=== PATIENT | female | born 1965 | race Caucasian/White ===

== ENCOUNTER 2017-07-21 21:57 | Emergency (ER) | payer OTHER, SELFPAY ==
[2017-07-21 22:01] VITALS: BP 118/82; PULSE 82; RESP 12; TEMP 36.8; O2SAT 99; BMI 32.5
--- NOTE | 2017-07-21 22:26 | HMH.EDWNDL ---
ED Disposition Clinical Impression: Laceration Disposition: Home, Self-Care Condition on Discharge: Good Instructions: DI for Laceration Repair Additional Instructions: sutures out 8-10 days and recheck if needed Prescriptions: cephALEXin [Keflex 500mg Cap] 500 mg PO Q8H #30 cap - Critical Care Critical Care Time: No Attestation: On 07/21/17, the high probability of a clinically significant, sudden or life threatening deterioration of the following system(s) required my full and direct attention, intervention and personal management. The time I documented below is in addition to time spent performing reported procedures but includes the following listed in this critical care notation. Medical Decision Making - Medical Records Medical records reviewed: Yes: I reviewed the patient's medical records. Vital Signs: 07/21/17 22:01 Temperature 98.2 F Temperature Source Oral Pulse Rate [Left Radial] 82 Respiratory Rate 12 Blood Pressure [Right Arm] 118/82 Blood Pressure Mean [Right Arm] 94 Blood Pressure Source [Right Arm] Automatic Cuff Blood Pressure Position [Right Arm] Sitting 02 Sat by Pulse Oximetry 99 Oxygen Delivery Method Room Air - Waqas Inquiry Pt receiving controlled substance: No Wound/Laceration HPI - General Chief Complaint: Wound/Laceration Stated Complaint: AO 07/21/16 @ 1030 Lac to left hand Time Seen by Provider: 07/21/17 22:26 Mode of Arrival: Ambulatory Source of Information: Patient, Medical Record Limitations: No Limitations Description of Symptoms (Recalled from ER Triage Doc. by RN): left hand avulsion , right plantar foot avulsion - History of Present Illness HPI narrative: trip injury with lac lt hand and abrasion rt foot Onset (ago): day(s) Extremity Location: Left: hand, Right: foot Place: home Patient tetanus UTD: No Context: accidental - Related Data Home Medications Medication Instructions Recorded Confirmed ALPRAZolam [Alprazolam Xr 1mg Tab] 1 mg PO HS 07/21/17 07/21/17 Hydrocodone/Acetaminophen 1 each PO Q4HP PRN 07/21/17 07/21/17 [Hydrocodon-Acetaminoph 7.5-325] Ibuprofen [Ibuprofen 800mg Tab] 800 mg PO Q8HP PRN 07/21/17 07/21/17 Previous Rx's Medication Instructions Recorded cephALEXin [Keflex 500mg Cap] 500 mg PO Q8H #30 cap 07/21/17 Allergies Allergy/AdvReac Type Severity Reaction Status Date / Time No Known Drug Allergies Allergy Unknown Verified 07/21/17 22:13 [NO KNOWN DRUG ALLERGIES] [facility] History I have reviewed the patient's past medical history: Yes Medical History: Denies:: Cancer, Diabetes Mellitus Type 1, Diabetes Mellitus Type 2, MRSA Laterality Cases: Right: Total Hip Replacement Amputation: No Fractures: Yes (bilateral hips) - *Social History Educational Level: Completed GED/General Educational Development Smoking Status: Current every day smoker # Packs/Day (cigarettes): 1 Alcohol Intake: never - Psychiatric History Expresses thoughts of harming self/others: None Suicide Plan Description: No Plan ROS Obtained: Yes All systems reviewed & no additional complaints - Constitutional Constitutional: Denies fever(s) - Eyes Eyes: Denies change in vision - ENT Ears, Nose, Mouth, and Throat: Denies sore throat - Cardiovascular Cardiovascular: Denies chest pain at rest - Respiratory Respiratory: No chest congestion - Gastrointestinal Gastrointestingal: Denies: abdominal pain - Musculoskeletal Musculoskeletal: Denies joint pain, Denies joint stiffness - Integumentary/Breasts Skin/Breast: Reports as per HPI - Neurologic Neurologic: Denies seizure-like activity Physical Exam - General General appearance: alert, in no apparent distress - Head Head exam: normocephalic - Eye Eye exam: Present: PERRL, EOMI - ENT ENT exam: Present: mucous membranes moist - Neck Neck exam: Present: trachea midline - Respiratory Respiratory exam: Absent: respiratory distress - Cardiova
[2017-07-21 23:12] VITALS: BP 118/72; PULSE 78; RESP 16; TEMP 36.9; O2SAT 98
== END 2017-07-21 23:14 | disposition home or self-care (01) ==
PROVIDERS: Emergency Provider Emergency Medicine
DX: S61.412A Laceration without foreign body of left hand, initial encounter (principal); W01.0XXA Fall on same level from slipping, tripping and stumbling without subsequent striking against object, initial encounter; Y92.019 Unspecified place in single-family (private) house as the place of occurrence of the external cause; S90.811A Abrasion, right foot, initial encounter; F17.210 Nicotine dependence, cigarettes, uncomplicated
CPT/HCPCS: 12001; 99281; 99282

== ENCOUNTER 2020-07-18 14:50 | Emergency (ER) | payer OTHER, SELFPAY ==
[2020-07-18 14:59] VITALS: BP 126/76; PULSE 92; RESP 20; TEMP 36.8; O2SAT 98; BMI 38.9
--- NOTE | 2020-07-18 15:03 | XR_ITS ---
PROCEDURE: XR KNEE RT 3V CLINICAL INDICATION: FALL Pain following injury COMPARISON: No exams were available for comparison FINDINGS: No fracture or dislocation. No lytic or blastic change. There is normal mineralization. There fyhu-hs-pbnmifdw osteoarthritic changes of the medial compartment and patellofemoral joint. Other findings:None. IMPRESSION: Osteoarthritis otherwise negative Dictated by: Mundo Mariee MD 07/18/2020 16:10 Mundo Mariee MD in [place] 07/18/2020 16:10
--- NOTE | 2020-07-18 15:03 | XR_ITS ---
PROCEDURE: XR HIP RT 2-3V W/PELVIS CLINICAL INDICATION: FALL Injury with pain COMPARISON: No exams were available for comparison FINDINGS: Status post bipolar right hip replacement. There is good alignment and no evidence fracture or dislocation. IMPRESSION: No acute findings. Dictated by: Mundo Mariee MD 07/18/2020 16:09 Mundo Mariee MD in [place] 07/18/2020 16:09
--- NOTE | 2020-07-18 15:44 | HMH.EDUTC ---
[facility] [place] Disposition Clinical Impression: Knee sprain Qualifiers: Encounter type: initial encounter Involved ligament of knee: other ligament Laterality: right Qualified Code(s): S83.8X1A - Sprain of other specified parts of right knee, initial encounter Contusion, hip and thigh Qualifiers: Encounter type: initial encounter Laterality: right Qualified Code(s): S70.01XA - Contusion of right hip, initial encounter Disposition: Home, Self-Care Condition on Discharge: Good Instructions: How to Use Crutches, How To Perform RICE (Rest, Ice, Compress, Elevate), How to Use a Knee Immobilizer Additional Instructions: *weight bearing as tolerated *RICE, Rest the extremity, Ice 15-20 minutes 3-4 times daily, Compress- wear the jose luis wrap as discussed as much as possible to help reduce swelling and pain, Elevate the extremity when at rest *Jose Luis wrap/knee immobilizer is for support and help control swelling, use it except in the shower. Be sure that is not to tight but not to loose either *Elevate when resting *Ibuprofen every 6-8 hours as needed for pain an inflammation. If need something more can take Tylenol in between doses of Ibuprofen to help Immediately follow up with your family doctor for new or worsening of symptoms, or no noticeable improvement over the next 3-5 days Follow up with Your Family Doctor or Orthopedics if pain continues Return if needed Straight to ER if any life threatening symptoms Referrals: Silverio Sofia MD [Staff Physician] - (Call office for appointment if pain continues) PCP,No [Primary Care Provider] - As needed Time of Disposition: 16:04 Medical Decision Making - Waqas Inquiry Pt receiving controlled substance: No Waqas was queried for this patient: No Vital Signs: 07/18/20 14:59 Temperature 98.2 F Temperature Source Oral Pulse Rate [Left Radial] 92 H Respiratory Rate 20 Blood Pressure [Right Arm] 126/76 Blood Pressure Mean [Right Arm] 92 Blood Pressure Source [Right Arm] Automatic Cuff Blood Pressure Position [Right Arm] Sitting 02 Sat by Pulse Oximetry 98 Oxygen Delivery Method Room Air Orders (Tests/Meds): ORDERS Category Date Time Status XR knee RT 3V Stat Exams 07/18/20 15:03 Taken - Radiology Data #1 Image(s): Hip Image Reviewed: Yes I reviewed the patient's radiology image w/the ED provider Preliminary Findings: No Fracture Seen #2 Image(s): Knee Image Reviewed: Yes I reviewed the patient's radiology image Preliminary Findings: No Fracture Seen [facility] [place] HPI - General Stated complaint: AO fall 07/17/20 right side pain Time Seen by Provider: 07/18/20 15:45 Mode of Arrival: Ambulatory Source of Information: Patient Limitations: No Limitations Description of Symptoms (Recalled from Triage Doc. by RN): c/o pain from her lower back down to her right knee after a fall yesterday. Pt states that she was going to answer a phone and she was going fast pace when she slipped and went down on her right knee. States she has a hx of injections in her knees. Denies hitting her head or any other injuries at this time HEENT Symptoms (Recalled from RN notes): No Resp Symptoms (Recalled from RN notes): No Skin Symptoms (Recalled from RN notes): No MS Symptoms (Recalled from RN notes): Yes Functional Status (Recalled from RN notes): wnl - History of Present Illness Provider Complaint: Patient states that she was walking in her house yesterday and slipped and fell States that she came straight down on her right knee and thinks she stobbed herself up States that she had a previous right hip replacement and injections on her right knee States that now she is having pain from her right hip area shooting down her leg and hurts when she bends her knee States that she has been able to walk on it but hurts if she stands for long periods of time - Related Data Home Medications Medication Instructions Recorded Confirmed Hydrocodone/Acetaminophen 1 each PO Q4HP PRN 07/21/17 07/15/19 [
[2020-07-18 16:17] VITALS: BP 126/76; PULSE 92; RESP 20; TEMP 36.8; O2SAT 98
== END 2020-07-18 16:18 | disposition home or self-care (01) ==
LOC: ER 15:00 → UTC 15:01
PROVIDERS: Emergency Provider Nurse Practitioner
DX: S83.8X1A Sprain of other specified parts of right knee, initial encounter (principal); S70.01XA Contusion of right hip, initial encounter; W01.0XXA Fall on same level from slipping, tripping and stumbling without subsequent striking against object, initial encounter; Y92.019 Unspecified place in single-family (private) house as the place of occurrence of the external cause; F17.210 Nicotine dependence, cigarettes, uncomplicated
CPT/HCPCS: 73502; 73562; 99202; G0463

== ENCOUNTER 2021-05-12 10:59 | Emergency (ER) | payer MEDICAID, SELFPAY ==
[2021-05-12 11:17] VITALS: BP 132/81; PULSE 86; RESP 18; TEMP 36.8; O2SAT 97; BMI 36.0
--- NOTE | 2021-05-12 11:35 | HMH.EDGENADL ---
ED Disposition Clinical Impression: Colitis, Rectal bleeding, External hemorrhoids Disposition: Home, Self-Care Condition on Discharge: Fair Instructions: DI for Acute Abdominal Pain, DI for Rectal Bleeding, DI for Colitis Additional Instructions: Follow-up with Dr. Redding, surgery, for evaluation of rectal bleeding, possible colonoscopy. Take Cipro and Flagyl as prescribed. [place] as needed for pain. Return to the emergency department if intolerable pain or bleeding becoming more severe or repetitive vomiting. Additional instructions for CONTROLLED SUBSTANCES: You have been prescribed a medication that is a controlled substance. Controlled substances include pain medications known as opiates and sedative nerve medications known as benzodiazepines. Tramadol, fioricet, and gabapentin are also controlled substances. Some common opiates include: Codeine (such as Tylenol #3) Hydrocodone (Vicodin, Lortab, Lorcet, [place]) Oxycodone (Percocet, Percodan, Oxycodone, Oxy IR) Some common benzodiazepines include: Diazepam (Valium) Lorazepam (Ativan) Alprazolam (Xanax) Clonazepam (Klonopin) Oxazepam (Serax) All of these controlled substances are highly addictive and frequently abused. Misuse can and frequently does lead to addiction as well as overdose and . Medication should be stored in a locked cabinet or other secure storage unit. Do not store the medication in a motor vehicle. Short term supplies, 3 days or less, are prescribed because of the highly addictive nature of the medication. Any of the controlled substance medication NOT taken should be disposed of properly and NOT SAVED. The recommended method of disposing of unused medications is: Place the medicines in a sealable plastic bag. If the medicine is a solid, crush it or add water to dissolve it. Add something undesirable (cat litter, coffee grounds, etc.) Dispose of sealed bag in household trash Do not flush or pour unused medicines down a sink or drain. Controlled substances should not be shared, given away or sold. Because of the addictive nature and frequent abuse, these medications are sometimes stolen. These medications should be kept in a safe place where they cannot be stolen. Do not keep them in your car or purse. Lost or stolen prescriptions for controlled substances WILL NOT BE REFILLED in this emergency department, regardless of whether a police report was filed. Prescriptions: Hydrocod/Acet 5/325 mg [[place] 5/325mg tablet] 1 tab PO Q6HP PRN #10 tab PRN Reason: Pain Transmission Status: Received by [facility] # Ciprofloxacin HCl [Cipro 500mg Tab] 500 mg PO BID #20 tab Transmission Status: Received by [facility] # metroNIDAZOLE [Metronidazole] 500 mg PO TID #30 tab Transmission Status: Received by [facility] # Referrals: Pilo Jordan [Primary Care Provider] - Mukund Redding MD [Staff Physician] - - Critical Care Critical Care Time: No Attestation: On 05/12/21, the high probability of a clinically significant, sudden or life threatening deterioration of the following system(s) required my full and direct attention, intervention and personal management. The time I documented below is in addition to time spent performing reported procedures but includes the following listed in this critical care notation. Medical Decision Making - Waqas Inquiry Pt receiving controlled substance: No Vital Signs: 05/12/21 11:17 Temperature 98.3 F Temperature Source Oral Pulse Rate [Left] 86 Respiratory Rate 18 Blood Pressure [Right Arm] 132/81 Blood Pressure Mean [Right Arm] 98 02 Sat by Pulse Oximetry 97 - Lab Data Lab Results 05/12/21 11:39: WBC 9.5, RBC 4.49, Hgb 13.8, Hct 42.6, MCV 95.0, MCH 30.7, MCHC 32.4, RDW 13.0, Plt Count 113 L, MPV 10.6 H, Neut % (Auto) 61.9, Lymph % (Auto) 29.3, [place] % (Auto) 5.6, Eos % (Auto) 1.9, Baso % (Auto) 1.3, Neut # (Auto) 5.9,
--- NOTE | 2021-05-12 11:43 | CT_ITS ---
PROCEDURE INFORMATION: Exam: CT Abdomen And Pelvis With Contrast Exam date and time: 05/12/2021 11:43 AM Age: 55 years old Clinical indication: Other: Cramping; Additional info: Abd pain and cramping TECHNIQUE: Imaging protocol: Computed tomography of the abdomen and pelvis with contrast. Radiation optimization: All CT scans at this facility use at least one of these dose optimization techniques: automated exposure control; mA and/or kV adjustment per patient size (includes targeted exams where dose is matched to clinical indication); or iterative reconstruction. Contrast material: ISOVUE; Contrast volume: 75 ml; Contrast route: IV; COMPARISON: CR XR HIP RT 2-3V W/PELVIS 07/18/2020 3:11 PM FINDINGS: Diaphragm: Small-sized hiatal hernia. Liver: Normal. Gallbladder and bile ducts: Normal. Pancreas: Normal. Spleen: Splenic calcifications, compatible with prior granulomatous disease. Adrenal glands: 17 mm heterogeneous right adrenal nodule, likely benign, but not definitively characterized on this study. Kidneys and ureters: Normal. Stomach and bowel: Moderate wall thickening of the descending colon and proximal sigmoid colon, with adjacent associated fat stranding, compatible with infectious/inflammatory colitis. Appendix: No evidence of appendicitis. Intraperitoneal space: Unremarkable. No free air. No significant fluid collection. Vasculature: Unremarkable. No abdominal aortic aneurysm. Lymph nodes: Unremarkable. No enlarged lymph nodes. Urinary bladder: Unremarkable as visualized. Reproductive: Unremarkable as visualized. Bones/joints: Right hip arthroplasty, without acute complications. Degenerative changes of the left hip, manifest by joint space narrowing and osteophyte formation. Multilevel thoracolumbar spine degenerative disc space narrowing and osteophyte formation. Soft tissues: Normal. IMPRESSION: 1. Moderate wall thickening of the descending colon and proximal sigmoid colon, with adjacent associated fat stranding, compatible with infectious/inflammatory colitis. 2. 17 mm heterogeneous right adrenal nodule, likely benign, but not definitively characterized on this study. Recommend comparison to previous studies if available. If unavailable, recommend adrenal CT or MRI for definitive evaluation.
[2021-05-12 11:49] LABS: Basophils # 0.1 K/mm3 (0-0.2); Basophils % 1.3 % (0.1-2.0); Eosinophils # 0.2 K/mm3 (0.0-0.4); Eosinophils % 1.9 % (0.1-12.0); Hematocrit 42.6 % (37.0-47.0); Hemoglobin 13.8 g/dL (12.2-16.2); Lymphocytes # 2.8 K/mm3 (0.7-4.5); Lymphocytes % 29.3 % (10-50); Mean Corpuscular HGB Conc 32.4 g/dL (31.8-35.4); Mean Corpuscular Hemoglobin 30.7 pg (27.0-31.2); Mean Platelet Volume 10.6 fl (7.4-10.4); Monocytes # 0.5 K/mm3 (0.1-1.0); Monocytes % 5.6 % (1.7-9.3); Neutrophils # 5.9 K/mm3 (1.8-7.8); Neutrophils % 61.9 % (37.0-80.0); Platelet Count 113 K/mm3 (142-424); Red Blood Count 4.49 M/mm3 (4.20-5.40); White Blood Count 9.5 K/mm3 (4.8-10.8)
[2021-05-12 11:56] LABS: Alanine Aminotransferase 28 U/L (12-78); Albumin/Globulin Ratio 1.3 (1.1-1.8); Alkaline Phosphatase 98 U/L (38-126); Amylase 57 U/L (30-110); Anion Gap 7.1 mEq/L (5-15); Aspartate Amino Transferase 34 U/L (14-36); Bilirubin,Total 0.6 mg/dl (0.2-1.3); Blood Urea Nitrogen 18 mg/dl (7-17); Calcium 8.9 mg/dl (8.4-10.2); Carbon Dioxide 28 mmol/L (22.0-30.0); Chloride 109 mmol/L (98-107); Creatinine Clearance Estimated 117 mL/min (50-200); Estimated Glomerular Filt Rate 74 ml/min (>60); GFR (African American) 89 ML/MIN (>60); Globulin 3.2 g/dL (1.3-3.2); Glucose 99 mg/dl (74-100); Potassium 4.1 mmoL/L (3.5-5.1); Sodium 140 mmol/L (136-145); Total Protein,Serum 7.2 g/dl (6.3-8.2)
[2021-05-12 12:00] VITALS: BP 123/86; PULSE 77; RESP 18; O2SAT 96
[2021-05-12 12:14] LABS: Microscopic, Urine URINE MICROSCOPIC (MICROSCOPIC)
[2021-05-12 12:17] LABS: Lipase 81 U/L (23-300)
[2021-05-12 12:30] VITALS: BP 122/78; PULSE 84; O2SAT 97
[2021-05-12 13:00] VITALS: BP 137/84; PULSE 80; RESP 18; O2SAT 97
[2021-05-12 13:27] LABS: Appearance,Urine CLEAR (Clear); Bilirubin,Urine Negative (Negative); Blood, Urine 1+ (Negative); Color,Urine YELLOW (Yellow); Glucose,Urine (UA) Negative (Negative); Ketones,Urine TRACE (Negative); Leukocyte Esterase,Urine Negative (Negative); Nitrate,Urine POSITIVE (Negative); PH,Urine 5.5 (5.0-8.5); Protein,Urine Negative (Negative); Specific Gravity, Urine >= 1.030 (1.005-1.030); Urobilinogen,Urine 0.2 EU/dl (0.2)
[2021-05-12 13:30] VITALS: BP 138/83; PULSE 76; O2SAT 98
[2021-05-12 15:24] VITALS: BP 153/90; PULSE 81; RESP 20; TEMP 36.6; O2SAT 99
[2021-05-12 18:36] LABS: Occult Blood,Stool Positive (Negative)
== END 2021-05-12 15:15 | disposition home or self-care (01) ==
PROVIDERS: Emergency Provider Emergency Medicine; PCP Family Medicine
DX: K52.9 Noninfective gastroenteritis and colitis, unspecified (principal); K62.5 Hemorrhage of anus and rectum; K64.4 Residual hemorrhoidal skin tags; F17.210 Nicotine dependence, cigarettes, uncomplicated
CPT/HCPCS: 74177; 80053; 81001; 82150; 82272; 83690; 85025; 99283; G0328; Q9967

== ENCOUNTER → 2021-06-06 12:44 | Outpatient (POV) | payer MEDICAID, SELFPAY ==
[2021-06-06 13:19] VITALS: BP 103/78; PULSE 84; RESP 18; O2SAT 97; BMI 35.0
--- NOTE | 2021-06-06 13:48 | XR_ITS ---
PROCEDURE: XR KNEE RT 3V CLINICAL INDICATION: BILAT KNEE PAIN COMPARISON: CR XR KNEE RT 3V from 07/18/2020 FINDINGS: No fracture or dislocation. No lytic or blastic change. There is normal mineralization. Tckk-tn-lwdkhdif osteoarthritic changes are present at the medial compartment and patellofemoral joint. Mildly prominent spur noted along the proximal posterior tibia IMPRESSION: Rnbt-nk-prxdjubs osteoarthritic changes of the right knee not significantly changed Dictated by: Mundo Mariee MD 06/06/2021 16:06 Mundo Mariee MD in [place] 06/06/2021 16:06
--- NOTE | 2021-06-06 13:48 | XR_ITS ---
PROCEDURE: XR KNEE LT 3V CLINICAL INDICATION: BILAT KNEE PAIN COMPARISON: CR XR KNEE RT 3V from 07/18/2020 FINDINGS: No fracture or dislocation. No lytic or blastic change. There is normal mineralization. There are mild moderate osteoarthritic changes of the medial compartment and patellofemoral joint. Subchondral cystic changes noted in the interspinous region of the proximal tibia Other findings:None. IMPRESSION: Lelw-xg-ldlrryqu osteoarthritis Dictated by: Mundo Mariee MD 06/06/2021 16:08 Mundo Mariee MD in [place] 06/06/2021 16:08
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
== END ==
PROVIDERS: Visit Provider Clinical Nurse Specialist Family Health
DX: M25.561 Pain in right knee (principal); M25.562 Pain in left knee; M54.50 Low back pain, unspecified; M25.521 Pain in right elbow
CPT/HCPCS: 73562; 99202; G0463

== ENCOUNTER → 2021-06-13 10:54 | Outpatient (POV) | payer MEDICAID, SELFPAY ==
[2021-06-13 11:08] VITALS: BP 126/80; PULSE 79; RESP 18; O2SAT 98; BMI 35.4
--- NOTE | 2021-06-13 12:24 | [facility].PAINSOAP ---
[facility] Pain Management SOAP Note Subjective:: Patient is a 55-year-old white female who presents today for follow-up. She recently underwent bilateral knee x-rays. She was referred to us for bilateral knee pain, right elbow pain and intermittent low back pain. She was previously seen at [facility] in [facility]. But due to the drive she decided to establish care in our clinic. She has had injective therapy and her knees in the past with minimal relief as well as a femoral nerve block with no relief. She is here today to review her imaging. She does get [place] and gabapentin from her PCP. At last visit she did report to be open to injective therapy. We did give her prednisone 20 mg 1 tablet p.o. twice daily for 5 days. Today, she rates her pain a 6 out of 10. She is inquiring about oral medication management within our clinic. Review of Systems General: No recent weight changes, no fever, no sleep disturbances Respiratory: No cough, no shortness of air, no recurring pulmonary infections Cardiovascular/peripheral vascular: No chest pain, no palpitations, no edema, no shortness of breath Gastrointestinal: No new onset incontinence, normal bowel movements reported Genitourinary: No new onset incontinence Musculoskeletal: Bilateral knee pain made worse with standing and walking Psychiatric: [Normal mood/affect] Neurological: [Denies weakness in extremities], [denies balance issues] Objective:: Physical exam General: Alert and oriented x3, no acute distress, pleasant and cooperative Lungs: Respirations even and unlabored, symmetrical chest expansion Eyes: PERRL Musculoskeletal: Flexion and extension of bilateral lower extremities secondary to pain, slightly antalgic gait noted Neurological: Speech clear, no gross sensory deficit Assessment:: Osteoarthritis bilateral knees, bilateral knee pain Plan:: We did discuss the patient's x-rays bilateral knees. We did discuss proceeding with injective therapy, however, the patient has decided to defer on injective therapy at this time. She did inquire about oral medication management of [place]. She has been advised that she will need to continue this with her PCP. She has decided to forego any treatment at this time. She has been advised she can contact the clinic if she does decide to proceed with injective therapy in the future. Patient has been instructed to contact the clinic with any concerns before the next appointment. Dr. Khalil has reviewed this note and agrees with this plan of care. This note was dictated using voice recognition software and make contain errors or omissions. [facility] History I have reviewed the patient's past medical history: Yes Medical History: Denies:: Cancer, Diabetes Mellitus Type 1, Diabetes Mellitus Type 2, Hypertension, MRSA *Have you ever received a pneumonia vaccine?: Yes *Have you received a flu vaccine this season?: Yes Other Medical History: Reports: Arthritis, Other Laterality Cases: Right: Arthroscopy Hip, Total Hip Replacement Other Surgeries: Yes: Colonoscopy Amputation: No Fractures: Yes (bilateral hips) - *Social History Smoking Status: Current every day smoker Tobacco Type: cigarettes # Packs/Day (cigarettes): 1 Alcohol Intake: never Alcohol Intake Frequency:: holidays/special occasions only Substance Use Type: denies use *Occupational Status:: unemployed Housing: house Household Members: family *Travel in the last 8 weeks: None Family Hx:: Diabetes, Cancer
== END ==
PROVIDERS: Visit Provider Clinical Nurse Specialist Family Health
DX: M17.0 Bilateral primary osteoarthritis of knee (principal)
CPT/HCPCS: 99212; G0463